=== PATIENT | female | born 1990 | race African-American/Black ===

== ENCOUNTER 2017-04-17 05:00 | Inpatient (IN) ==
[2017-04-17] MEDS ORDERED: BUTORPHANOL 2 MG/ML VIAL IV PRN (05:11)
[2017-04-17] MEDS ORDERED: MEPERIDINE 50 MG/1 ML VIAL IV PRN (05:11)
[2017-04-17] MEDS ORDERED: ONDANSETRON 4 MG/2 ML VIAL IV PRN ×2 (05:11→18:59)
[2017-04-17] MEDS ORDERED: OXYTOCIN/LR 20 UNIT/1,000 ML BAG IV SCH (05:30)
[2017-04-17] MEDS ORDERED: LACTATED RINGERS 1,000 ML IV SCH ×2 (05:30→18:59)
[2017-04-17 06:07] LABS: Basophils % 0.4 % (0.0-0.8); Eosinophils % 0.4 % (0.00-10.9); Hematocrit 27.1 VOL% (35.7-47.0); Hemoglobin 8.7 GM/DL (12.0-16.0); Immature Granulocytes % 2.9 %; Immature Granulocytes Absolute 0.32 #; Lymphocytes # 2.4 10*3/uL (1.4-4.0); Lymphocytes % 21.9 % (21.3-54.2); Mean Corpuscular HGB Conc 32.1 GM/DL (32-36); Mean Corpuscular Hemoglobin 30 PG (27-34); Mean Corpuscular Volume 93.4 FL (87-102); Mean Platelet Volume 12.4 FL (9.6-12.0); Monocytes # 0.7 10*3/uL (0.11-0.8); Neutrophils # 7.6 10*3/uL (1.4-7.4); Neutrophils % 68.4 % (38.7-73.9); Platelet Count 197 T/CUMM (130-400); Red Cell Distribution Width 13.2 % (9.3-17.3); White Blood Count 11.2 T/CUMM (4-12)
[2017-04-17 06:37] LABS: Albumin 2.6 G/DL (3.4-5.0); Bilirubin,Total 1.3 MG/DL (0.2-1.0); Calcium 8.4 MG/DL (8.5-10.1); Osmolality,Calculated 272.5 MOS/KG (273-304); Potassium 3.6 MMOL/L (3.5-5.1); Total Protein 6.3 G/DL (6.4-8.3)
--- NOTE | 2017-04-17 08:47 | OB/GYN History & Physical ---
History of Present Illness Chief complaint: 26 y/o present for IOL History of present illness: 04/17/17 @0805am Ms. Elena is a 26 year old female @ 39 0/7 weeks gestation consistent with 11 week u/s. Patient present this morning for IOL via pitocin. Patient reports that she has had good movement throughout the night and denies any vaginal bleeding, spotting, or leakage of fluid. Care: HC starting at 11 weeks gestation Past OB Hx.: 1.) of viable male 06/08/2014 weight 6lbs 14oz, no complications. 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 of abnormal paps Past Medical Hx: Negative Surgical Hx.:Negative Family Hx. Negative Social Hx. No tobacco, no ETOH, no drug use. Patient is a single female, FOB involved Meds: PNVs Allergis: NKDA labs: GBS negative on 03/20/2017 Home Medications Medication Instructions Recorded Confirmed Type Ondansetron Odt Tab [Zofran Odt] 4 mg PO Q6H #15 tablet 06/14/15 03/15/17 Rx Allergies Allergy/AdvReac Type Severity Reaction Status Date / Time No Known Allergies Allergy Unverified 11/06/14 18:30 12 point system: reviewed and no additional remarkable complaints except as stated Medical,Surgical,& Family Hx - Medical History Medical History: noncontributory Neurology: History of: Migraine Reproductive: No history of: Ectopic , Complication - Surgical History Reproductive Surgeries: Patient denies;: Section - Family History Family History: Reports;: Family Diabetes (father), Family Hypertension (mother and father) - Social History Smoking Status: Never smoker Frequency of Alcohol Use: None Type of Drug Use: None 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 - Constitutional Vitals: Vital Signs Temp Pulse Resp BP 04/17/17 07:46 97.7 F 77 20 111/64 04/17/17 05:12 97.5 F L 86 18 104/65 General appearance: normal weight - Antepartum / Post Antepartum Exam Cervix - Dilatation: 4-5cm Effacement: 50% Station: -2 Rupture: AROM @ 0808am clear fluid noted Presentation: vertex Heart Rate: Category I tracing [place]: continuous Breast: bilateral: normal Vulva: bilateral: normal - Head Head exam: Present: normal inspection - Eye Eye exam: Present: EOMI Pupils: Present: DARRELL - ENT ENT exam: Present: normal exam - Neck Neck exam: Present: normal inspection - Respiratory Respiratory exam: Present: clear to auscultation bilaterally - Breast Breasts: other (normal) Menstruation: amenorrhea (due to ) - Cardiovascular Peripheral pulses: 2+: posterior tibialis (L), posterior tibialis (R), dorsalis pedis (L), dorsalis pedis (R) - GI/Abdominal GI/Abdominal exam: Present: normal bowel sounds - Extremities Exam Extremities exam: Present: normal inspection - Back Exam Back exam: Present: normal inspection - Neurological Exam Neurological exam: Present: alert, oriented X3 - Skin Skin exam: Present: normal color, warm Assessment and Plan - Time spent with patient Time spent with patient: Less than 30 minutes (1) Term Status: Acute Assessment and plan: IOL via pitocin Current Visit: Yes (2) Elective induction of labor planned Status: Acute Assessment and plan: AROM @ 0808am Continuous [place] Pain management as desired Expected labor management Anticipate . Current Visit: Yes Results - Labs CBC & BMP: 04/17/17 05:35 04/17/17 05:35
[2017-04-17] MEDS ORDERED: ONDANSETRON 4 MG/2 ML VIAL IV ONE (09:41)
[2017-04-17] MEDS ORDERED: ePHEDrine 50 MG/ML AMP IV PRN (09:41)
[2017-04-17] MEDS ORDERED: CITRIC ACID/SODIUM CITRATE 30 ML UDCUP PO ONE (09:41)
[2017-04-17] MEDS ORDERED: fentaNYL 2 MCG/ROPIV 0.2% EPID 150 ML EPIDURAL SCH (09:41)
[2017-04-17] MEDS ORDERED: diphenhydrAMINE 50 MG/1 ML VIAL IV PRN ×2 (09:41)
[2017-04-17] MEDS ORDERED: hydrOXYzine HCL 25 MG/1 ML VIAL IM PRN (09:41)
[2017-04-17] MEDS ORDERED: FAMOTIDINE 20 MG/2 ML VIAL IV ONE (09:41)
[2017-04-17] MEDS ORDERED: LACTATED RINGERS 1,000 ML IV ONE (09:41)
[2017-04-17] MEDS ORDERED: PROMETHAZINE 25 MG/1 ML VIAL IM ONE (09:41)
[2017-04-17 14:50] LABS: Apearance,Urine CLEAR (Clear); Bilirubin,Urine Negative (Negative); Blood, Urine Negative (Negative); Glucose,Urine (UA) Negative (Negative); Ketones,Urine 20 mg/dL (Negative); Mucus,Urine Occasional /LPF (Occasional); Nitrite,Urine Negative (Negative); Protein,Urine Negative; RBC,Urine 5 /HPF (0-4); Urine Color Yellow (Yellow); Urine Specific Gravity 1.009 (1.001-1.035); WBC,Urine 2 /HPF (0-6)
--- NOTE | 2017-04-17 16:58 | OB/GYN Progress Note ---
Assessment and Plan (1) Term Status: Resolved Assessment and plan: IOL via pitocin Current Visit: Yes (2) Elective induction of labor planned Status: Resolved Assessment and plan: AROM @ 0808am Continuous [place] Pain management as desired Expected labor management Anticipate . Current Visit: Yes (3) Vaginal delivery Status: Acute Assessment and plan: Routine PP management. Current Visit: Yes [employer] - PN: Subj Interval history: 1147am S-Patient reports pressure with uterine contractions O-FHTs 110-120 SVE 10/100/0 station, began pushing, maternal pushing efforts sufficient head delivered RAISSA, infant's nose & mouth suctioned, shoulders and body delivered without difficulty. Cord clamping delayed, infant's nose and mouth suctioned again, dried, cord then clamped, cord cut by fob. placed on mom's chest skin to skin. Placenta delivered without difficulty and intact, 3 vessel cord noted. Fundus massaged until firm EBL 150mls. Periurethra skid noted bilaterally with no active bleeding. Apgars 9/9 weight 7lbs 8oz. A- of viable male P-Routine PP care. Exam [employer] - Constitutional Vitals: Vital Signs Temp Pulse Resp BP Pulse Ox 04/17/17 16:00 97.4 F L 76 18 110/72 98 04/17/17 15:30 97.4 F L 76 76 H 110/72 98 04/17/17 15:00 97.3 F L 73 18 109/70 98 04/17/17 12:00 97.8 F 80 22 116/57 100 04/17/17 07:46 97.7 F 77 20 111/64 04/17/17 05:12 97.5 F L 86 18 104/65 Results - Labs CBC & BMP: 04/17/17 05:35 04/17/17 05:35
[2017-04-17] MEDS ORDERED: OXYTOCIN/LR 20 UNIT/1,000 ML BAG IV ONE (17:39)
[2017-04-17] MEDS ORDERED: MAGNESIUM HYDROXIDE SUSP 30 ML UDCUP PO PRN (18:59)
[2017-04-17] MEDS ORDERED: IBUPROFEN 800 MG TABLET PO PRN (18:59)
[2017-04-17] MEDS ORDERED: ACETAMINOPHEN 325 MG TABLET PO PRN (18:59)
[2017-04-17] MEDS ORDERED: BISACODYL 10 MG SUPP RECTAL PRN (18:59)
[2017-04-17] MEDS: DOCUSATE SODIUM 100 MG CAPSULE PO SCH (22:43)
[2017-04-18 05:58] LABS: Basophils % 0.3 % (0.0-0.8); Eosinophils # 0.1 10*3/uL (0.0-0.87); Eosinophils % 0.3 % (0.00-10.9); Hematocrit 25.5 VOL% (35.7-47.0); Hemoglobin 8.2 GM/DL (12.0-16.0); Immature Granulocytes % 1.9 %; Immature Granulocytes Absolute 0.27 #; Lymphocytes % 20.5 % (21.3-54.2); Mean Corpuscular HGB Conc 32.2 GM/DL (32-36); Mean Corpuscular Hemoglobin 30 PG (27-34); Mean Corpuscular Volume 91.7 FL (87-102); Mean Platelet Volume 11.7 FL (9.6-12.0); Monocytes % 6.6 % (1.7-12.7); Neutrophils # 10.2 10*3/uL (1.4-7.4); Neutrophils % 70.4 % (38.7-73.9); Platelet Count 152 T/CUMM (130-400); Red Blood Count 2.78 MC/CUMM (3.8-5.5); Red Cell Distribution Width 13.1 % (9.3-17.3); White Blood Count 14.6 T/CUMM (4-12)
[2017-04-18] MEDS: ACETAMINOPHEN 325 MG TABLET PO PRN ×2 (06:14→22:27)
--- NOTE | 2017-04-18 06:55 | Anesthesia Post-Op ---
Anesthesia Post OP - Post Ansesthetic Evaluation Patient seen in post op: Yes Resp: within normal limits CV: within normal limits Mental: within normal limits Temp: within normal limits [id number]: within normal limits Nausea and Vomiting: within normal limits Pain: within normal limits
--- NOTE | 2017-04-18 08:22 | OB/GYN Progress Note ---
Assessment and Plan (1) Term Status: Resolved Assessment and plan: IOL via pitocin Current Visit: Yes (2) Elective induction of labor planned Status: Resolved Assessment and plan: AROM @ 0808am Continuous [place] Pain management as desired Expected labor management Anticipate . Current Visit: Yes (3) Vaginal delivery Status: Resolved Assessment and plan: Routine PP management. Current Visit: Yes (4) examination following vaginal delivery Status: Acute Assessment and plan: Continue routine PP management Current Visit: Yes (5) Anemia Status: Acute Assessment and plan: Ferrous Sulfate 325mg 1 tab po TID Current Visit: Yes [employer]ING [employer] - PN: Subj Interval history: 809 S- Patient denies pain or discomfort at present. Patient reports bottle feeding infant. Patient reports normal voiding without difficulty and reports only minimal bleeding. Patient expressed desire for depo provera for contraception management before discharge. O-Patient rec'd sitting upright in bed, Alert and oriented. CVS- RRR, no murmur , Lungs CTA bilaterally Breast without bra or binder. Nipples intact and breast soft bilaterally Fundus firm 2fbs below umbilicus Lochia-small amount of dark red rubra noted Extremities-+ pedal pulses, no edema, negative ravinder's sign bilaterally H/H 8.2/25.5 A- PP day 1 status post Anemia P-Routine PP management Start Ferrous Sulfate 325mg 1 tab TID Anticipate discharge home in the a.m. Exam [employer] - Constitutional Vitals: Vital Signs Temp Pulse Pulse Resp BP Pulse Ox 04/18/17 07:40 97.4 F L 74 16 97/58 98 04/18/17 05:00 116 H 04/18/17 03:45 97.2 F L 77 16 109/56 98 04/18/17 03:00 16 04/18/17 02:00 16 04/18/17 00:30 97.7 F 76 20 107/65 99 04/17/17 19:40 97.8 F 78 20 104/62 98 04/17/17 16:00 97.4 F L 76 18 110/72 98 04/17/17 15:30 97.4 F L 76 76 H 110/72 98 04/17/17 15:00 97.3 F L 73 18 109/70 98 04/17/17 12:00 97.8 F 80 22 116/57 100 Results - Labs CBC & BMP: 10/13/17 05:40 04/17/17 05:35
[2017-04-18] MEDS: FERROUS SULFATE 325 MG TABLET PO SCH ×2 (08:48→21:02)
[2017-04-18] MEDS: DOCUSATE SODIUM 100 MG CAPSULE PO SCH ×2 (08:48→21:02)
--- NOTE | 2017-04-19 08:30 | Discharge Summary ---
Hospital Course - Hospital Course Hospital Course: 04/19/2017 @ 0820 S- Patient reports minimal bleeding, reports normal bowel and bladder habits without difficulty. Patient expresses desire for depo provera for contraception management. O- CVS-RRR, no murmur, lungs-CTA bilaterally Breast- Soft and nipples intact bilaterally Fundus firm 3 fbs below umbilicus Lochia- small amount of dark red rubra Extremities-+ pedal pulses, no edema, negative ravinder's sign bilaterally A- PP day 2 status post P- Discharge home this morning Discharge Rx. Ferrous Sulfate Administer Depo Provera prior to discharge F/U in clinic in 6 weeks. Diagnosis - Discharge Diagnosis (1) Term Status: Resolved (2) Elective induction of labor planned Status: Resolved (3) Vaginal delivery Status: Resolved (4) examination following vaginal delivery Status: Resolved (5) Anemia Status: Acute Specialty Discharge - Follow Up or Referrals Discharge Plan - Discharge Data Disposition: Disch To Home/Self Care Condition at Discharge: Stable Discharge Diet: regular diet Activity: resume usual activities as tolerated Hygiene: may shower Weight Bearing at Discharge: full weight bearing Driving: not until seen by doctor Contact your physician if you experience:: fever over 101, Difficulty voiding, Shortness of breath, pain uncontrolled by pain medications - Discharge Medications New Ferrous Sulfate Tab [Feosol Original Tab] 325 mg PO BID #90 tablet Ibuprofen Tab [Motrin Tab] 800 mg PO Q8H PRN #90 tablet PRN Reason: Pain Moderate (4-7) - Follow Up or Referral Follow Up: Elana Silva CNM [Advanced Practice Nurse] - - Forms/Instructions Instructions: Perineal Care (DC), Vaginal Delivery (DC), Bleeding (DC) Exam - Constitutional Vitals: Period Temp Pulse Resp BP Sys/Pride Pulse Ox Last 24 Hr 98.0 F-98.5 F 75-88 18-20 94-108/56-71 97-98 DS: Provider Date of admission: 04/17/17 05:11 Primary care physician: . No PCP Attending physician on admission: Leilani Hermosillo MD Consults: 04/17/17 05:11 Consult to Anesthesiology [CONS] Routine Consulting Provider: Reason for Anesthesiology: Epidural Consult Comment: Epidural for pain managment Discharging clinician: Elana Silva CNM Expected date of discharge: 04/19/17
[2017-04-19] MEDS: DOCUSATE SODIUM 100 MG CAPSULE PO SCH (08:31)
[2017-04-19] MEDS: FERROUS SULFATE 325 MG TABLET PO SCH (08:31)
[2017-04-19 08:46] VITALS: BP 113/62
== END 2017-04-19 11:30 | disposition home or self-care (01) | DRG 560 ==
LOC: N.LDOUT 05:00 → N.LD 05:02 → N.OB 14:46
PROVIDERS: ADMIT Obstetrics & Gynecology; ATTEND Obstetrics & Gynecology